=== PATIENT | female | born 1945 | race Caucasian/White ===

== ENCOUNTER → 2017-05-08 | Outpatient (CLI) | payer OTHER ==
[2017-05-12 14:38] LABS: Stool Occult Bld Immuno 1 Negative (NEGATIVE)
== END ==
LOC: LAB EV 14:00 → LAB SHORT 14:00
PROVIDERS: Nurse Practitioner Family
DX: Z12.11 Encounter for screening for malignant neoplasm of colon (principal)
CPT/HCPCS: G0328

== ENCOUNTER 2018-04-11 21:02 | Emergency (ER) | payer OTHER ==
[~2018-04-11] VITALS: Ht 152.4 cm; Wt 93.4 kg
[2018-04-11] MEDS ORDERED: Ferosul325 MG PO (21:45)
[2018-04-11] MEDS ORDERED: ATEN50 PO (21:46)
[2018-04-11] MEDS ORDERED: CENTRUM SILVER1 EAC2 PO (21:46)
[2018-04-11] MEDS ORDERED: METF500C PO (21:46)
[2018-04-11] MEDS ORDERED: LEVSOD100 PO (21:46)
[2018-04-11] MEDS ORDERED: CALCIUM + D3 E1 EACH PO (21:47)
[2018-04-11] MEDS ORDERED: ASPI81CH PO (21:47)
[2018-04-11] MEDS ORDERED: ESCI20 (21:55)
[2018-04-11] MEDS ORDERED: ATOR10 (21:55)
[2018-04-11] MEDS ORDERED: LISI20 PO (21:55)
[2018-04-11] MEDS ORDERED: GABA300 (21:55)
[2018-04-11] MEDS ORDERED: TRULICITY0.75 MG/0. (21:56)
[2018-04-11] MEDS ORDERED: Hydrocodone-Ap1 EA20 PO (21:57)
[2018-04-11 22:56] LABS: BASOPHILS ABSOLUTE AUTO 0.03 K/mm3 (0.00-0.23); BASOPHILS PERCENT AUTO 0 % (0-2); EOSINOPHILS ABSOLUTE AUTO 0.21 K/mm3 (0.00-0.68); EOSINOPHILS PERCENT AUTO 2 % (0-6); Hematocrit 34.8 % (33.0-51.0); Hemoglobin 11.3 g/dL (11.5-16.0); IMMATURE GRAN ABSOLUTE AUTO 0.02 K/mm3 (0.00-0.10); IMMATURE GRAN PERCENT AUTO 0 % (0-1); LYMPHOCYTES ABSOLUTE AUTO 1.86 K/mm3 (0.84-5.20); LYMPHOCYTES PERCENT AUTO 19 % (21-46); MONOCYTES ABSOLUTE AUTO 0.92 K/mm3 (0.16-1.47); MONOCYTES PERCENT AUTO 9 % (4-13); Mean Corpuscular HGB Conc 32.5 g/dL (31.5-36.5); Mean Corpuscular Volume 99 fL (80-100); Mean Platelet Volume 10.6 fL (9.1-12.4); NEUTROPHILS ABSOLUTE AUTO 6.83 K/mm3 (1.96-9.15); NEUTROPHILS PERCENT AUTO 69 % (41-73); Platelet Count 208 K/mm3 (150-400); RDW Standard Deviation 50.8 fL (35.1-46.3); Red Blood Cell Count 3.53 M/mm3 (3.80-5.20); White Blood Cell Count 9.87 K/mm3 (4.00-11.30)
[2018-04-11 23:09] LABS: Bun/Creatinine Ratio 18.9 (12.0-20.0); Calcium, Blood 9.3 mg/dL (8.5-10.1); Creatinine, Blood 1.27 mg/dL (0.40-1.00); Potassium, Blood 4.6 mmol/L (3.5-5.5)
[2018-04-11] MEDS ORDERED: Flagyl500 MG PO (23:35)
[2018-04-11] MEDS ORDERED: Cipro500 MG PO (23:35)
== END 2018-04-11 23:45 | disposition home or self-care (01) ==
LOC: ER 21:02
PROVIDERS: Emergency Medicine
DX: K57.32 Diverticulitis of large intestine without perforation or abscess without bleeding (principal); Z79.899 Other long term (current) drug therapy; Z79.84 Long term (current) use of oral hypoglycemic drugs; Z79.82 Long term (current) use of aspirin; E11.9 Type 2 diabetes mellitus without complications; I10 Essential (primary) hypertension
CPT/HCPCS: 36415; 74176; 80048; 85025; 96374; 96375; 99284-25; J2405; J3010

== ENCOUNTER → 2018-06-22 | Outpatient (CLI) | payer OTHER ==
[~2018-06-22] MED LIST: ASPI81CH PO; ATEN50 PO; ATOR10; CALCIUM + D3 E1 EACH PO; CENTRUM SILVER1 EAC2 PO; Cipro500 MG PO; ESCI20; Ferosul325 MG PO; Flagyl500 MG PO; GABA300; Hydrocodone-Ap1 EA20 PO; LEVSOD100 PO; LISI20 PO; METF500C PO; TRULICITY0.75 MG/0.
[2018-06-23 14:07] LABS: Stool Occult Bld Immuno 1 Negative (NEGATIVE)
== END ==
LOC: LAB EV 08:15 → EDSTATUS 11:52
PROVIDERS: Student in an Organized Health Care Education/Training Program
DX: Z12.11 Encounter for screening for malignant neoplasm of colon (principal); Z12.12 Encounter for screening for malignant neoplasm of rectum
CPT/HCPCS: G0328

== ENCOUNTER 2019-02-10 14:57 | Emergency (ER) | payer OTHER ==
[~2019-02-10] VITALS: Ht 152.4 cm; Wt 88.0 kg
[~2019-02-10 14:57] MED LIST changes: -ATOR10; +ATOR10 PO; -ESCI20; +ESCI20 PO; +FURO20 PO; +Florastor250 MG PO; -GABA300; +GABA300 PO; -TRULICITY0.75 MG/0.; +TRULICITY0.75 MG/0. INJ
[2019-02-10 17:20] LABS: BASOPHILS ABSOLUTE AUTO 0.03 K/mm3 (0.00-0.23); BASOPHILS PERCENT AUTO 0 % (0-2); EOSINOPHILS PERCENT AUTO 2 % (0-6); Hematocrit 36.5 % (33.0-51.0); Hemoglobin 11.8 g/dL (11.5-16.0); IMMATURE GRAN ABSOLUTE AUTO 0.03 K/mm3 (0.00-0.10); IMMATURE GRAN PERCENT AUTO 0 % (0-1); LYMPHOCYTES ABSOLUTE AUTO 1.71 K/mm3 (0.84-5.20); LYMPHOCYTES PERCENT AUTO 19 % (21-46); MONOCYTES ABSOLUTE AUTO 0.64 K/mm3 (0.16-1.47); MONOCYTES PERCENT AUTO 7 % (4-13); Mean Corpuscular HGB 31.4 pg (26.0-34.0); Mean Corpuscular HGB Conc 32.3 g/dL (31.5-36.5); Mean Corpuscular Volume 97 fL (80-100); NEUTROPHILS ABSOLUTE AUTO 6.59 K/mm3 (1.96-9.15); NEUTROPHILS PERCENT AUTO 72 % (41-73); Platelet Count 216 K/mm3 (150-400); RDW Coefficient Variation 13.2 % (11.7-14.2); RDW Standard Deviation 47.2 fL (35.1-46.3); Red Blood Cell Count 3.76 M/mm3 (3.80-5.20)
[2019-02-10 17:40] LABS: Troponin I <0.015 ng/mL (0.000-0.040)
[2019-02-10 17:50] LABS: Alanine Aminotransfer (ALT/SGP 25 U/L (12-78); Albumin, Blood 3.8 g/dL (3.4-5.0); Albumin/Globulin Ratio 1.1 (0.8-1.8); Alk Phos 71 U/L (50-136); Anion Gap 7 mmol/L (6-16); Aspartate Aminotrans (AST/SGOT 24 U/L (12-37); Bilirubin, Total 0.3 mg/dL (0.1-1.0); Blood Urea Nitrogen 44 mg/dL (8-24); Bun/Creatinine Ratio 24.9 (12.0-20.0); CO2, Blood 27 mmol/L (21-32); Calcium, Blood 9.5 mg/dL (8.5-10.1); Chloride, Blood 106 mmol/L (98-108); Creatinine, Blood 1.77 mg/dL (0.40-1.00); Globulin, Blood 3.6 g/dL (2.2-4.0); Glomerular Filtration Rate 30 (60-); Glucose, Blood 115 mg/dL (70-99); Potassium, Blood 5.1 mmol/L (3.5-5.5); Sodium, Blood 140 mmol/L (136-145); Total Protein, Blood 7.4 g/dL (6.4-8.2)
[2019-02-10 18:02] LABS: Source, Urine Voided
[2019-02-10 18:10] LABS: Bilirubin, Urine Neg (Neg); Blood, Urine Neg (Neg); Glucose Qualitative, Urine Neg (Neg); Ketones, Urine Neg (Neg); Leukocyte Esterase, Urine Neg (Neg); Nitrite, Urine Neg (Neg); Protein, Urine Neg (Neg); Specific Gravity, Urine 1.005 (1.003-1.022); Urobilinogen, Urine NORM (Normal)
[2019-02-10 18:32] LABS: Appearance, Urine Clear (Clear); Color, Urine Yellow (P-Yellow)
== END 2019-02-10 19:13 | disposition home or self-care (01) ==
LOC: ER 14:57
PROVIDERS: Emergency Medicine
DX: R42 Dizziness and giddiness (principal); I12.9 Hypertensive chronic kidney disease with stage 1 through stage 4 chronic kidney disease, or unspecified chronic kidney disease; E11.22 Type 2 diabetes mellitus with diabetic chronic kidney disease; N18.9 Chronic kidney disease, unspecified; Z79.899 Other long term (current) drug therapy; Z79.82 Long term (current) use of aspirin
CPT/HCPCS: 36415; 80053; 81003; 83735; 84484; 85025; 93005; 93010; 99284-25

== ENCOUNTER 2019-05-10 14:52 | Inpatient (IN) | payer OTHER ==
[~2019-05-10] VITALS: Ht 152.4 cm; Wt 89.5 kg
[~2019-05-10 14:52] MED LIST changes: +ATOR20 PO; +OYSTER SHELL 51 EACH PO; +Triamcinolone A15 G3 TOP; +Voltaren100 GM TOP
--- NOTE | 2019-05-11 06:47 | NUR ---
Ambulatory in Day Surgery History, Chart, Medications and Allergies reviewed before start of procedure.Lungs clear T/O to Auscultation. Patient confirms NPO status and agrees with scheduled surgery. Patient reports completing Chlorhexadine shower X2 prior to admission to hospital.Surgical site prepped with 2% Chlorhexidine cloth wipe. Patient States Post-Procedure ride home has been arranged.
--- NOTE | 2019-05-11 07:50 | NUR ---
AFTER MULTIPLE ATTEMPTS AT VENIPUNCTURE UTILIZING ULTRASOUND (UNSUCCESSFULLY) DR. JARAMILLO AND DR. JOHNSON AT BEDSIDE-#18 PLACED TO LEFT EJ. VANCOMYCIN INTITIATED-NOZYN AND PERIDEX COMPLETED PER PROTOCOL.
--- NOTE | 2019-05-11 08:09 | NUR ---
MULTIPLE UNSUCCESSFUL ATTEMPTS AT VENIPUNCTURE. DR. JARAMILLO PLACED LEFT EXTERNAL JUGULAR # PIV.
--- NOTE | 2019-05-11 15:45 | NUR ---
PT CONTINUES TO BE DROWSY BUT AWAKENS TO NAME AND DENIES NEEDS AT THIS TIME.
--- NOTE | 2019-05-11 18:00 | NUR ---
PT AWAKE STATED SHE IS READY TO TRY AND EAT SOMETHING
--- NOTE | 2019-05-12 04:08 | NUR ---
SHIFT SUMMARY POD 1 R SHOULDER [id number], VSS. PT MAINTAINING NWB STATUS. SLING IN PLACE. DRESSING CDI. PT MEDICATED FOR PAIN PER EMAR. PT UP TO BSC, VOIDING WELL. TOLERATING PO WELL.
[2019-05-12 07:38] LABS: BASOPHILS ABSOLUTE AUTO 0.02 K/mm3 (0.00-0.23); BASOPHILS PERCENT AUTO 0 % (0-2); EOSINOPHILS ABSOLUTE AUTO 0.01 K/mm3 (0.00-0.68); EOSINOPHILS PERCENT AUTO 0 % (0-6); Hematocrit 25.2 % (33.0-51.0); IMMATURE GRAN ABSOLUTE AUTO 0.03 K/mm3 (0.00-0.10); IMMATURE GRAN PERCENT AUTO 0 % (0-1); LYMPHOCYTES ABSOLUTE AUTO 1.69 K/mm3 (0.84-5.20); LYMPHOCYTES PERCENT AUTO 16 % (21-46); MONOCYTES ABSOLUTE AUTO 0.98 K/mm3 (0.16-1.47); MONOCYTES PERCENT AUTO 9 % (4-13); Mean Corpuscular HGB Conc 31.7 g/dL (31.5-36.5); Mean Corpuscular Volume 101 fL (80-100); Mean Platelet Volume 10.4 fL (9.1-12.4); NEUTROPHILS ABSOLUTE AUTO 8.13 K/mm3 (1.96-9.15); NEUTROPHILS PERCENT AUTO 75 % (41-73); Platelet Count 149 K/mm3 (150-400); RDW Standard Deviation 47.8 fL (35.1-46.3); White Blood Cell Count 10.86 K/mm3 (4.00-11.30)
[2019-05-12 07:58] LABS: Bun/Creatinine Ratio 17.1 (12.0-20.0); Calcium, Blood 7.9 mg/dL (8.5-10.1); Creatinine, Blood 2.05 mg/dL (0.40-1.00); Magnesium, Blood 1.4 mg/dL (1.6-2.4); Potassium, Blood 4.8 mmol/L (3.5-5.5)
--- NOTE | 2019-05-12 10:14 | NUR ---
05/12/19 1014 Rafaela Zimmerman VERIFICATIONS: EDIT CHART.
[2019-05-12] MEDS ORDERED: PROM25 PO (15:14)
[2019-05-12] MEDS ORDERED: Percocet 5-3251 EACH PO (15:14)
[2019-05-12] MEDS ORDERED: BACTRIM DS TAB1 EACH PO (15:15)
--- NOTE | 2019-05-12 16:51 | NUR ---
DISCHARGE PT, DON AND PT'S BROTHER PROVIDED WITH WRITTEN AND VERBAL DISCHARGE INSTRUCTIONS. DRESSINGS PROVIDED AND THEY WERE INSTRUCTED HOW TO CHANGE THE DRESSINGS. THEY VERBALIZED UNDERSTANDING OF INSTRUCTIONS. PT REPORTED GOOD PAIN MANAGMENT PRIOR TO DISCHARGE. HOME HEALTH ARRANGED FOR THE PATIENT BY DR. HURTADO'S OFFICE. PT ESCORTED OUT IN W/C BY [facility].
== END 2019-05-12 16:45 | disposition home or self-care (01) | DRG 483 ==
LOC: SURS 05-11 05:58 → PRE IP 05-11 07:30 → SURS 05-11 12:43
PROVIDERS: ADMIT Orthopaedic Surgery
PROC: 0RRJ00Z Replacement of Right Shoulder Joint with Reverse Ball and Socket Synthetic Substitute, Open Approach (ICD-10-PCS; principal; 2019-05-11 07:30)
DX: M19.011 Primary osteoarthritis, right shoulder (principal); M75.101 Unspecified rotator cuff tear or rupture of right shoulder, not specified as traumatic; N18.9 Chronic kidney disease, unspecified; E11.9 Type 2 diabetes mellitus without complications; E03.9 Hypothyroidism, unspecified; G47.30 Sleep apnea, unspecified; F32.9 Major depressive disorder, single episode, unspecified; Z96.653 Presence of artificial knee joint, bilateral
CPT/HCPCS: 36415; 73030; 80048; 82947; 83735; 85025; 88300; 97110; 97116; 97161; 97166; 97530; 97535; A9270-GY; C1713; C1776; J0171; J0696; J0735; J1100; J1815; J1885; J2250; J2370; J2405; J2704; J2710; J2795; J3010; J3370; J7030; J7120

== ENCOUNTER → 2019-09-26 | Outpatient (CLI) | payer OTHER ==
[~2019-09-26] MED LIST changes: +BACTRIM DS TAB1 EACH PO; +PROM25 PO; +Percocet 5-3251 EACH PO
[2019-09-27 14:35] LABS: Stool Occult Bld Immuno 1 Negative (NEGATIVE)
== END ==
LOC: LAB EV 12:44 → LAB SHORT 12:44
PROVIDERS: Student in an Organized Health Care Education/Training Program
DX: Z12.11 Encounter for screening for malignant neoplasm of colon (principal); Z12.12 Encounter for screening for malignant neoplasm of rectum
CPT/HCPCS: G0328

== ENCOUNTER → 2020-09-04 | Outpatient (CLI) | payer OTHER ==
[~2020-09-04] MED LIST changes: +LOSA50 PO
[2020-09-05 10:31] LABS: Stool Occult Bld Immuno 1 Negative (NEGATIVE)
== END | disposition home or self-care (01) ==
LOC: LAB SHORT 11:45 → LAB EV 11:45
PROVIDERS: Student in an Organized Health Care Education/Training Program
DX: Z12.11 Encounter for screening for malignant neoplasm of colon (principal); Z12.12 Encounter for screening for malignant neoplasm of rectum
CPT/HCPCS: G0328

== ENCOUNTER → 2022-03-05 | Outpatient (CLI) | payer OTHER | LOC: LAB SHORT 12:17 | DX: E11.319 Type 2 diabetes mellitus with unspecified diabetic retinopathy without macular edema (principal); E11.42 Type 2 diabetes mellitus with diabetic polyneuropathy; E11.69 Type 2 diabetes mellitus with other specified complication; E11.51 Type 2 diabetes mellitus with diabetic peripheral angiopathy without gangrene; E11.22 Type 2 diabetes mellitus with diabetic chronic kidney disease; Z79.4 Long term (current) use of insulin | CPT/HCPCS: 36415; 83036 ==

== ENCOUNTER 2023-12-14 02:59 | Day surgery (SDC) | payer OTHER ==
[~2023-12-14 02:59] MED LIST changes: +FARXIGA5 MG PO
[2023-12-14 07:36] VITALS: BP 123/73
[2023-12-14] MEDS ORDERED: CALCITRIOL0.25 MC4 PO (09:21)
[2023-12-14] MEDS ORDERED: EUTHYROX88 MC1 PO (09:30)
[2023-12-14] MEDS ORDERED: TRAM50 (09:32)
[2023-12-14] MEDS ORDERED: Triamcinolone A15 GM (09:33)
[2023-12-14] MEDS ORDERED: MUPIROCIN15 GM (09:34)
[2023-12-14] MEDS ORDERED: VOLTAREN ARTHRI20 GM (09:34)
[2023-12-14] MEDS ORDERED: ketoconazole (09:35)
[2023-12-14] MEDS ORDERED: propofoL 20 ML IV ONE (10:00)
== END 2023-12-14 07:59 | disposition home or self-care (01) ==
LOC: ATC 02:59
DX: M65.351 Trigger finger, right little finger (principal); Z01.83 Encounter for blood typing; E03.9 Hypothyroidism, unspecified; E11.22 Type 2 diabetes mellitus with diabetic chronic kidney disease; N18.9 Chronic kidney disease, unspecified; Z79.899 Other long term (current) drug therapy
CPT/HCPCS: 99211; J2704

== ENCOUNTER 2023-12-14 08:15 | Day surgery (SDC) | payer OTHER ==
[~2023-12-14] VITALS: Ht 144.8 cm; Wt 94.9 kg
[2023-12-14] MEDS ORDERED: CALCITRIOL0.25 MC4 PO (09:21)
[2023-12-14] MEDS ORDERED: EUTHYROX88 MC1 PO (09:30)
[2023-12-14] MEDS ORDERED: TRAM50 (09:32)
[2023-12-14] MEDS ORDERED: Triamcinolone A15 GM (09:33)
[2023-12-14] MEDS ORDERED: MUPIROCIN15 GM (09:34)
[2023-12-14] MEDS ORDERED: VOLTAREN ARTHRI20 GM (09:34)
[2023-12-14] MEDS ORDERED: ketoconazole (09:35)
[2023-12-14] MEDS ORDERED: NS 50 ML IV ONE (09:38)
[2023-12-14] MEDS ORDERED: CeFAZolin Sodium 2,000 MG VIAL ONE (09:38)
[2023-12-14] MEDS ORDERED: Lactated Ringer's 1,000 ML IV ONE (09:40)
--- NOTE | 2023-12-14 09:59 | NUR ---
12/14/23 0959 [facility] TIMEOUT COMPLETED BEFORE PRE-OP INJECTION DONE BY DR ACOSTA PRE-OP INJECTION COMPLETED BY DR ACOSTA OF A TOTAL OF 5CC OF (MIXTURE OF 9 CC 1% LIDOCAINE WITH EPINEPHRINE 1:100,000 WITH 1 CC SODIUM BICARBONAT 8.4%)
[2023-12-14] MEDS ORDERED: CefTRIAXone 1000 MG Vial IM ONE (10:15)
--- NOTE | 2023-12-14 10:24 | NUR ---
12/14/23 1024 Annette Nicholas ANTIBIOTIC GIVEN IN POST OP BY ANESTHESIA DUE TO NON-WORKING IV.
[2023-12-14 10:26] VITALS: BP 133/102
--- NOTE | 2023-12-14 10:59 | NUR ---
12/14/23 1059 Mukesh Hurtado BANDAGE APPLIED TO SMALL INCISION ON LEFT WRIST CAUSED WHEN USING SAFETY SCISSORS TO REMOVE ARM BAND. SCANT BLEEDING ONLY TO SUPERFICIAL WOUND.
== END 2023-12-14 11:00 | disposition home or self-care (01) ==
LOC: ORSCSDS 08:15
PROVIDERS: Orthopaedic Surgery
PROC: 0LN70ZZ Release Right Hand Tendon, Open Approach (ICD-10-PCS; principal; 2023-12-14 11:00)
DX: M65.351 Trigger finger, right little finger (principal); E11.22 Type 2 diabetes mellitus with diabetic chronic kidney disease; N18.9 Chronic kidney disease, unspecified; I12.9 Hypertensive chronic kidney disease with stage 1 through stage 4 chronic kidney disease, or unspecified chronic kidney disease; E03.9 Hypothyroidism, unspecified; G47.30 Sleep apnea, unspecified; E11.9 Type 2 diabetes mellitus without complications; Z79.82 Long term (current) use of aspirin; Z79.899 Other long term (current) drug therapy
CPT/HCPCS: 82947; J0690; J0696